=== PATIENT | male | born 1970 | race Hispanic/Latino ===

== ENCOUNTER 2019-12-22 19:03 | Emergency (ER) | payer BC, SELFPAY ==
--- NOTE | 2019-12-22 19:23 | ED.ANXIETY ---
HPI - Anxiety General Chief Complaint: Anxiety Stated Complaint: anxiety Time Seen by Provider: 12/22/19 19:40 Source: patient and RN notes reviewed Mode of arrival: ambulatory Limitations: language barrier (Family member present to help translate) History of Present Illness HPI narrative: 49-year-old male presents with concern for anxiety. Reports 3-week history of bouts of anxiety that start when he is at work in the heat, he reports his shoulders and neck tense up, he breathes fast and his heart beats fast. He reports he was seen by his primary care doctor 2 weeks ago and prescribed medication. He reports he has not been taking some of the medication because it makes him tired. He denies any chest pain, shortness of breath. Denies current anxiety. MD complaint: anxiety Related Data Home Medications Medication Instructions Recorded Confirmed Lomotil 12/22/19 clonazepam 12/22/19 escitalopram oxalate 12/22/19 Allergies Allergy/AdvReac Type Severity Reaction Status Date / Time No Known Allergies Allergy Verified 12/22/19 19:52 Review of Systems Review of Systems: Narrative: CONSTITUTIONAL: Denies malaise, chills, sweats, or fever. EYES: Denies visual changes, redness, or discharge. ENT: Denies rhinorrhea, congestion, sinus pain, otalgia or sore throat. CARDIOVASCULAR: Denies chest pain, palpitations, or edema. RESPIRATORY: Denies cough or dyspnea. GASTROINTESTINAL: Denies abdominal pain, nausea, vomiting, diarrhea, bloody, or mucous stools. GENITOURINARY: Denies dysuria or hematuria. SKIN: Denies rash or itching. MUSCULOSKELETAL: Denies back pain, joint pain, or myalgia. NEUROLOGIC: Denies numbness, weakness, or headache. PSYCHIATRIC: Reports history of anxiety All systems reviewed & are unremarkable except as noted in HPI and below PMFSH Comments At time of signature, agree with nursing past medical, surgical, social and family history. There is no relevant family history pertinent to the presenting complaint Exam Narrative: Exam Narrative: GENERAL: Well-appearing, well-nourished, and in no acute distress. HEAD: Normocephalic, atraumatic. EYES: PERRLA, conjunctivae clear NECK: Supple. CHEST: No respiratory distress. Clear to auscultation. No bony deformities, no asymmetry. Speaks in full sentences. HEART: Regular rate and rhythm. No murmur heard. EXTREMITIES: Grossly normal range of motion. No edema. Grossly normal strength and sensation. SKIN: Warm, dry, no rash. NEURO: Alert and oriented x3. PSYCH: Normal mood and affect Course Course Emergency Course: Educated patient on proper use of my citalopram. Educated patient on anxiety management. Instructed patient to follow-up with his primary care provider for further evaluation and medication adjustment if needed. Patient is aware of, understands and agrees to treatment plan. Anticipatory guidance given. Patient agrees to follow-up as directed and is aware of reasons to seek care at the emergency department. Portions of this record may have been created with voice recognition software Vital Signs Vital signs: Vital Signs Temperature 98.8 F 12/22/19 19:30 Pulse Rate 74 12/22/19 19:30 Respiratory Rate 16 12/22/19 19:30 Blood Pressure 139/85 12/22/19 19:30 Pulse Oximetry 99 12/22/19 19:30 Temperature 98.8 F 12/22/19 19:30 Pulse Rate 74 12/22/19 19:30 Respiratory Rate 16 12/22/19 19:30 Blood Pressure 139/85 12/22/19 19:30 Pulse Oximetry 99 12/22/19 19:30 Reviewed. MDM - Anxiety MDM Narrative Medical decision making narrative: Exam findings show no acute concerns or changes; patient is non-toxic appearing and is in no distress. Patient is appropriate for outpatient treatment and follow-up. Differential Diagnosis Differential diagnosis: Likely hyperventilation, panic disorder and acute anxiety Critical Care Time Critical Care Time Critical Care Time: No Discharge Plan Discharge Clinical Impression: Hi
[2019-12-22 19:30] VITALS: BP 139/85; PULSE 74; RESP 16; TEMP 37.1; O2SAT 99
== END 2019-12-22 20:16 | disposition home or self-care (01) ==
PROVIDERS: Emergency Provider Nurse Practitioner
DX: F41.9 Anxiety disorder, unspecified (principal)
CPT/HCPCS: 99201; G0463

== ENCOUNTER 2020-01-04 19:35 | Emergency (ER) | payer BC, SELFPAY ==
--- NOTE | 2020-01-04 19:39 | ED.ABDPAIN ---
HPI - Abdominal Pain General Chief Complaint: Abdominal Pain Stated Complaint: abd pain Time Seen by Provider: 01/04/20 19:50 Source: patient and RN notes reviewed Mode of arrival: ambulatory Limitations: no limitations History of Present Illness HPI narrative: 49-year-old male presents with concern for indigestion that causes anxiety. Reports a history of anxiety, was seen by his doctor a month ago and prescribed antianxiety medicine which he is unable to take because it makes him too tired. Reports for 2 to 3 weeks he has had symptoms where he feels like he needs to burp but is unable to, which makes him nauseous and thus causes anxiety. He denies any vomiting, abdominal pain, fever. Reports intermittent diarrhea, takes Lomotil approximately 2 times a week for diarrhea. Yesterday had a normal soft stool. MD elicited complaint: abdominal pain Related Data Home Medications Medication Instructions Recorded Confirmed clonazepam 0.5 mg TID PRN 01/04/20 01/04/20 diphenoxylate-atropine 2 tablet TID PRN 01/04/20 01/04/20 escitalopram oxalate 10 mg DAILY 01/04/20 01/04/20 Allergies Allergy/AdvReac Type Severity Reaction Status Date / Time No Known Allergies Allergy Verified 01/04/20 19:40 Review of Systems Review of Systems: Narrative: CONSTITUTIONAL: Denies malaise, chills, sweats, or fever. ENT: Denies rhinorrhea, congestion, sinus pain, otalgia or sore throat. CARDIOVASCULAR: Denies chest pain, palpitations, or edema. RESPIRATORY: Denies cough or dyspnea. GASTROINTESTINAL: Denies abdominal pain, vomiting. Reports indigestion, occasional diarrhea. Denies bloody, or mucous stools. GENITOURINARY: Denies dysuria or hematuria. SKIN: Denies rash or itching. MUSCULOSKELETAL: Denies myalgia. NEUROLOGIC: Denies headache. PSYCHIATRIC: Reports anxiety All systems reviewed & are unremarkable except as noted in HPI and below PMFSH Social History Social History Gender identity (if verbalized by the patient): Male Comments At time of signature, agree with nursing past medical, surgical, social and family history. There is no relevant family history pertinent to the presenting complaint Exam Narrative: Exam Narrative: GENERAL: Well-appearing, well-nourished, and in no acute distress. HEAD: Normocephalic EYES: PERRLA, conjunctivae clear, and EOMI. ENT: Mucous membranes moist. NECK: Supple. CHEST: Speaks in full sentences. No respiratory distress. HEART: Regular rate and rhythm. ABDOMEN: Soft, flat, nondistended. No guarding, rebound tenderness, or rigid. No pulsatilla masses. Bowel sounds present in all four quadrants. No organomegaly. Negative Vasquez?s sign. No periumbilical tenderness. No Supra public tenderness or distension. Good femoral pulses bilaterally. No hernia noted. No scars or surface trauma. SKIN: Warm, dry, no rash. NEURO: Alert and oriented x3. PSYCH: Normal mood and affect Course Course Emergency Course: Patient is aware of diagnosis, understands and agrees to treatment plan. Anticipatory guidance given. Patient agrees to follow-up as directed and is aware of reasons to seek care at the emergency department. Portions of this record may have been created with voice recognition software Vital Signs Vital signs: Vital Signs Temperature 98.1 F 01/04/20 19:45 Pulse Rate 68 01/04/20 19:45 Respiratory Rate 16 01/04/20 19:45 Blood Pressure 140/82 01/04/20 19:45 Pulse Oximetry 98 01/04/20 19:45 Temperature 98.1 F 01/04/20 19:45 Pulse Rate 68 01/04/20 19:45 Respiratory Rate 16 01/04/20 19:45 Blood Pressure 140/82 01/04/20 19:45 Pulse Oximetry 98 01/04/20 19:45 Reviewed. MDM - Abdominal Pain MDM Narrative Medical decision making narrative: No evidence of pancreatitis, AAA, cholecystitis, choledocholithiasis, cholangitis, mesenteric ischemia, small bowel obstruction, diverticulitis, colitis, appendicitis, or pelvic etiology such as ovarian/testicular torsion, TOA
[2020-01-04 19:45] VITALS: BP 140/82; PULSE 68; RESP 16; TEMP 36.7; O2SAT 98
== END 2020-01-04 20:08 | disposition home or self-care (01) ==
PROVIDERS: Emergency Provider Nurse Practitioner; PCP Registered Nurse
DX: F41.9 Anxiety disorder, unspecified (principal)
CPT/HCPCS: 99213; G0463